=== PATIENT | female | born 1975 | race Caucasian/White ===

== ENCOUNTER 2017-03-19 14:04 | Emergency (ER) | payer SELFPAY ==
[~2017-03-19] VITALS: Ht 162.6 cm; Wt 50.0 kg
[~2017-03-19 14:04] MED LIST: AMPH1TAB33 PO; BUPR-175 PO; VALI10TA PO; ZITH250T PO
[2017-03-19 14:05] VITALS: BP 126/82; PULSE 72; RESP 20; TEMP 98.3; O2SAT 98
[2017-03-19] MEDS ORDERED: ACYC400T PO (15:18)
[2017-03-19] MEDS ORDERED: B-10TAB2 (15:18)
[2017-03-19] MEDS ORDERED: IBUP800T23 PO (15:18)
[2017-03-19] MEDS ORDERED: MULT1CHW33 (15:18)
[2017-03-19] MEDS ORDERED: GING500C2 PO (15:18)
[2017-03-19] MEDS ORDERED: TURM500C3 PO (15:18)
[2017-03-19] MEDS ORDERED: ASCO1CHW7 CHEW (15:18)
[2017-03-19] MEDS ORDERED: MAGN200T PO (15:18)
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
[2017-03-19 16:53] VITALS: BP 123/78; PULSE 76; RESP 18; O2SAT 98
== END 2017-03-19 17:02 | disposition left against medical advice (07) ==
LOC: NEPD 14:04
DX: T74.21XA Adult sexual abuse, confirmed, initial encounter (principal); K62.89 Other specified diseases of anus and rectum; F17.200 Nicotine dependence, unspecified, uncomplicated; Z86.59 Personal history of other mental and behavioral disorders
CPT/HCPCS: 99281